=== PATIENT | male | born 1950 | race Asian ===

== ENCOUNTER 2016-12-24 12:26 | Inpatient (IN) | payer MEDICARE ==
[2016-12-24] VITALS (13 sets, daily range): BP systolic 88–119; BP diastolic 42–78
[~2016-12-24] VITALS: Ht 170.2 cm; Wt 69.7 kg
[2016-12-24] MEDS ORDERED: NOREPINEPHRINE 4 MG/D5%-WATER 250 ML IV ONE (12:44)
[2016-12-24] MEDS ORDERED: AMIODARONE HCL 150 MG in DEXTROSE 5%-WATER 97 ML IV ONE (12:45)
[2016-12-24] MEDS ORDERED: AMIODARONE HCL 360 MG in DEXTROSE 5%-WATER 242.8 ML IV ONE (12:45)
[2016-12-24] MEDS ORDERED: SUCCINYLCHOLINE CHLORIDE 20 MG/ML 10 ML VIAL ONE (12:47)
[2016-12-24] MEDS ORDERED: RAPID SEQUENCE KIT 1 EA KIT ONE (12:47)
[2016-12-24] MEDS ORDERED: ETOMIDATE 2 MG/ML 10 ML VIAL ONE (12:47)
[2016-12-24 12:54] LABS: BASOPHILS % (AUTO) 0.3 % (0.0-2.0); EOSINOPHILS % (AUTO) 1.7 % (1.0-6.0); HEMATOCRIT 50.5 % (41-53); LYMPHOCYTES # (AUTO) 4.8 K/uL (1.0-4.8); LYMPHOCYTES % (AUTO) 40.3 % (22.0-44.0); MEAN CORPUSCULAR HEMOGLOBIN 28.4 pg (26.0-34.0); MEAN CORPUSCULAR HGB CONC 31.7 G/dL (31.0-37.0); MEAN CORPUSCULAR VOLUME 89 fL (80-100); MONOCYTES # (AUTO) 0.1 K/uL (0.1-1.0); MONOCYTES % (AUTO) 0.8 % (2.0-9.0); NEUTROPHILS # (AUTO) 6.8 K/uL (1.8-7.7); NEUTROPHILS % (AUTO) 56.9 % (40.0-70.0); PLATELET COUNT (AUTO) 119 K/uL (150-450); RED BLOOD CELL COUNT(AUTO) 5.66 MIL/uL (4.50-5.90); RED CELL DISTRIBUTION WIDTH 16.1 % (11.5-14.5)
[2016-12-24] MEDS ORDERED: ETOMIDATE 2 MG/ML 10 ML VIAL IVP ONE (13:00)
[2016-12-24] MEDS ORDERED: SUCCINYLCHOLINE CHLORIDE 20 MG/ML 10 ML VIAL IVP ONE (13:00)
[2016-12-24 13:04] LABS: CALCIUM, TOTAL 7.6 mg/dL (8.8-10.5); CREATININE 1.68 mg/dL (0.60-1.30); POTASSIUM 3.1 mmol/L (3.5-5.1)
[2016-12-24 13:06] LABS: INR 1.1 (0.9-1.1)
[2016-12-24] MEDS ORDERED: PHENYLEPHRINE 200 MG/D5%-WATER 250 ML IV PRN (13:15)
[2016-12-24 13:29] LABS: ALBUMIN 3.5 g/dL (3.4-5.0); BILIRUBIN,TOTAL 0.5 mg/dL (0.1-1.0); CREATINE KINASE MB 16.3 ng/mL (0-5); TOTAL PROTEIN, SERUM 7.7 g/dL (6.4-8.2)
[2016-12-24 13:30] LABS: ABG BASE EXCESS -22.8 mmol/L (-2.0-3.0); ABG HCO3 8.6 mmol/L (22.0-26.0); ABG OXYHEMOGLOBIN 76.9 % (94.0-100.0); ABG PCO2 42 mmHg (35-45); ABG PH 6.958 (7.35-7.450)
[2016-12-24 13:31] LABS: ALLEN TEST, BLOOD GAS Positive
[2016-12-24] MEDS ORDERED: VERAPAMIL HCL 2.5 MG/ML 2 ML VIAL ONE (13:32)
[2016-12-24] MEDS ORDERED: SODIUM BICARBONATE 50 MEQ/50 ML VIAL ONE (13:33)
[2016-12-24] MEDS ORDERED: IOHEXOL 300 MG/ML 50 ML VIAL ONE (13:33)
[2016-12-24] MEDS ORDERED: IOHEXOL 300 MG/ML 150 ML VIAL ONE (13:33)
[2016-12-24] MEDS ORDERED: NITROGLYCERIN 50 MG/D5% WATER 0 ML ONE (13:33)
[2016-12-24] MEDS ORDERED: HEPARIN SODIUM 1000 UNITS/NS 1,000 ML ONE (13:33)
[2016-12-24] MEDS ORDERED: IOHEXOL 300 MG/ML 100 ML VIAL ONE (13:33)
[2016-12-24] MEDS ORDERED: LIDOCAINE HCL/PF 1% 30 ML VIAL ONE (13:33)
[2016-12-24] MEDS ORDERED: LORazepam 2 MG/ML VIAL IVP ONE (13:45)
[2016-12-24] MEDS ORDERED: ROCURONIUM BROMIDE 10 MG/ML 5 ML VIAL IVP ONE (13:45)
[2016-12-24] MEDS: NOREPINEPHRINE 4 MG/D5%-WATER 250 ML IV PRN ×2 (14:00→23:53)
[2016-12-24] MEDS ORDERED: HEPARIN SODIUM 2,000 UNITS in HEPARIN SODIUM 1000 UNITS/NS 1,000 ML IARTER ONE (14:33)
[2016-12-24] MEDS ORDERED: HEPARIN SODIUM 1000 UNITS/NS 500 ML ONE (14:33)
[2016-12-24] MEDS ORDERED: LIDOCAINE 1% 30 ML/SOD BICARB 8.4% 4 ML SQ ONE (14:45)
[2016-12-24] MEDS ORDERED: IOHEXOL 300 MG/ML 150 ML VIAL IARTER ONE (14:45)
[2016-12-24] MEDS ORDERED: FUROSEMIDE 40 MG/4 ML VIAL IVP ONE (15:15)
[2016-12-24] MEDS ORDERED: POTASSIUM CHLORIDE 20 MEQ ER TABLET PO PRN (16:00)
[2016-12-24] MEDS ORDERED: POTASSIUM CHL 10 MEQ/WATER 50 ML IV PRN (16:00)
[2016-12-24] MEDS ORDERED: SODIUM CHLORIDE 0.9% 500 ML IV ONE (16:06)
[2016-12-24] MEDS ORDERED: SODIUM CHLORIDE 0.9% 250 ML IV ONE (16:54)
[2016-12-24] MEDS ORDERED: AMIODARONE HCL 50 MG/ML 3 ML VIAL IVP ONE (17:15)
[2016-12-24] MEDS ORDERED: EPINEPHrine 1:10,000 [1 MG/10 ML] SYRINGE IVP ONE (17:15)
[2016-12-24 17:26] LABS: ABG A-A DIFF O2 325.7 mmHg (10-20.0); ABG BASE EXCESS -13.9 mmol/L (-2.0-3.0); ABG HCO3 13.8 mmol/L (22.0-26.0); ABG OXYHEMOGLOBIN 98.3 % (94.0-100.0); ABG PCO2 54 mmHg (35-45); TEMPERATURE, FAHRENHEIT, BG 96.5 FAHREN (96.0-98.6)
[2016-12-24 17:30] LABS: ABG PH 7.086 (7.35-7.450)
[2016-12-24 17:31] LABS: ALLEN TEST, BLOOD GAS Positive
[2016-12-24 18:05] LABS: CREATINE KINASE MB 62.9 ng/mL (0-5)
[2016-12-24] MEDS: POTASSIUM CHL 10 MEQ/WATER 50 ML IV PRN ×3 (18:16→19:03)
[2016-12-24] MEDS ORDERED: AMIODARONE HCL 540 MG in DEXTROSE 5%-WATER 239.2 ML IV ONE (18:45)
[2016-12-24 19:43] LABS: ABG A-A DIFF O2 270.4 mmHg (10-20.0); ABG BASE EXCESS -15.8 mmol/L (-2.0-3.0); ABG HCO3 14.7 mmol/L (22.0-26.0); ABG OXYHEMOGLOBIN 98.5 % (94.0-100.0); ABG PCO2 20 mmHg (35-45); ABG PH 7.329 (7.35-7.450); TEMPERATURE, FAHRENHEIT, BG 97.2 FAHREN (96.0-98.6)
[2016-12-24 19:47] LABS: INSIPIRATORY PRESSURE, BG 28 cm H2O
[2016-12-24] MEDS: FUROSEMIDE 40 MG/4 ML VIAL IVP SCH (20:42)
[2016-12-24 23:20] LABS: ALBUMIN 3.5 g/dL (3.4-5.0); BILIRUBIN,TOTAL 1.2 mg/dL (0.1-1.0); CALCIUM, TOTAL 7.5 mg/dL (8.8-10.5); CREATININE 2.07 mg/dL (0.60-1.30); MAGNESIUM 2.4 mg/dL (1.80-2.40); PHOSPHORUS 3.4 mg/dL (2.5-4.9); POTASSIUM 4.9 mmol/L (3.5-5.1); TOTAL PROTEIN, SERUM 7.5 g/dL (6.4-8.2)
[2016-12-25] VITALS (7 sets, daily range): BP systolic 60–152; BP diastolic 33–93
[2016-12-25] MEDS: NOREPINEPHRINE 4 MG/D5%-WATER 250 ML IV PRN ×3 (01:06→08:34)
[2016-12-25] MEDS: LORazepam 2 MG/ML VIAL IVP PRN ×2 (03:36→05:39)
[2016-12-25] MEDS: MORPHINE SULFATE 2 MG/ML SYRINGE IVP PRN (04:43)
[2016-12-25] MEDS: VASOPRESSIN 100 UNITS in DEXTROSE 5%-WATER 245 ML IV PRN (05:09)
[2016-12-25 05:10] LABS: TEMPERATURE, FAHRENHEIT, BG 94.9 FAHREN (96.0-98.6)
[2016-12-25 05:14] LABS: ABG A-A DIFF O2 194.8 mmHg (10-20.0); ABG HCO3 14.6 mmol/L (22.0-26.0); ABG OXYHEMOGLOBIN 98.4 % (94.0-100.0); ABG PCO2 25 mmHg (35-45); ABG PH 7.295 (7.35-7.450)
[2016-12-25 05:15] LABS: ALLEN TEST, BLOOD GAS POS
[2016-12-25 05:58] LABS: HEMOGLOBIN 15.8 g/dL (13.5-17.5); MEAN CORPUSCULAR HEMOGLOBIN 28.3 pg (26.0-34.0); MEAN CORPUSCULAR HGB CONC 32.2 G/dL (31.0-37.0); MEAN CORPUSCULAR VOLUME 88 fL (80-100); PLATELET COUNT (AUTO) 169 K/uL (150-450); RED BLOOD CELL COUNT(AUTO) 5.57 MIL/uL (4.50-5.90); RED CELL DISTRIBUTION WIDTH 15.4 % (11.5-14.5); WHITE BLOOD COUNT (AUTO) 21.7 K/uL (4.5-11.0)
[2016-12-25 06:04] LABS: INR 1.2 (0.9-1.1); PROTHROMBIN TIME 12.7 SEC (9.4-11.6)
[2016-12-25] MEDS: PROPOFOL 1000 MG/ISO-OSM 100 ML IV PRN ×3 (06:40→23:34)
[2016-12-25 06:49] LABS: BILIRUBIN,TOTAL 0.8 mg/dL (0.1-1.0); CALCIUM, TOTAL 6.9 mg/dL (8.8-10.5); CREATINE KINASE MB 159.3 ng/mL (0-5); CREATININE 2.4 mg/dL (0.60-1.30); PHOSPHORUS 3.2 mg/dL (2.5-4.9); POTASSIUM 4.3 mmol/L (3.5-5.1); THYROID STIMULATING HORMONE 3.64 uIU/mL (0.36-3.74)
[2016-12-25] MEDS ORDERED: DOPamine HCL 400 MG/D5%-WATER 250 ML IV ONE (08:02)
[2016-12-25] MEDS: DOPamine HCL 400 MG/D5%-WATER 250 ML IV PRN (08:37)
[2016-12-25 08:47] LABS: ABG A-A DIFF O2 412.8 mmHg (10-20.0); ABG BASE EXCESS -16.1 mmol/L (-2.0-3.0); ABG HCO3 13.6 mmol/L (22.0-26.0); ABG PCO2 28 mmHg (35-45); ABG PH 7.235 (7.35-7.450); TEMPERATURE, FAHRENHEIT, BG 96.6 FAHREN (96.0-98.6)
[2016-12-25 08:51] LABS: ALLEN TEST, BLOOD GAS Positive
[2016-12-25 08:52] LABS: INSIPIRATORY PRESSURE, BG 28 cm H2O
[2016-12-25 08:53] LABS: BAND NEUTROPHILS % (MANUAL) 33 % (1-5); LYMPHOCYTES % (MANUAL) 12 % (22-44); RBC MORPHOLOGY COMMENT NORMAL RBC MORPH; TOTAL CELLS COUNTED 100
[2016-12-25] MEDS ORDERED: SODIUM BICARBONATE [ADULT] 8.4% 50 MEQ/50 ML SYRINGE IVP ONE (09:00)
[2016-12-25] MEDS: FUROSEMIDE 40 MG/4 ML VIAL IVP SCH ×2 (09:00→21:00)
[2016-12-25] MEDS ORDERED: DIGOXIN 250 MCG/ML 2 ML AMP IVP ONE (09:45)
[2016-12-25] MEDS ORDERED: HEPARIN SODIUM,PORCINE 1,000 UNITS/ML VIAL IVP ONE (10:00)
[2016-12-25] MEDS ORDERED: HEPARIN SODIUM,PORCINE 5,000 UNITS/ML VIAL SQ ONE (10:00)
[2016-12-25] MEDS ORDERED: DOPamine HCL 800 MG/D5%-WATER 250 ML IV PRN (10:00)
[2016-12-25] MEDS: SODIUM BICARBONATE 150 MEQ in DEXTROSE 5%-WATER 1,000 ML IV SCH (10:06)
[2016-12-25] MEDS ORDERED: ALBUMIN HUMAN 25%-12.5GM/50ML 100 ML ONE (10:16)
[2016-12-25] MEDS ORDERED: ALBUMIN HUMAN 25%-25GM/100ML 100 ML IV ONE (10:30)
[2016-12-25 10:36] LABS: ABG A-A DIFF O2 630.1 mmHg (10-20.0); ABG BASE EXCESS -6.3 mmol/L (-2.0-3.0); ABG HCO3 20.2 mmol/L (22.0-26.0); ABG OXYHEMOGLOBIN 90.8 % (94.0-100.0); ABG PCO2 30 mmHg (35-45); ABG PH 7.405 (7.35-7.450); TEMPERATURE, FAHRENHEIT, BG 97.4 FAHREN (96.0-98.6)
[2016-12-25 10:38] LABS: HEMATOCRIT 43.5 % (41-53); HEMOGLOBIN 14.2 g/dL (13.5-17.5); MEAN CORPUSCULAR HEMOGLOBIN 28.1 pg (26.0-34.0); MEAN CORPUSCULAR HGB CONC 32.6 G/dL (31.0-37.0); MEAN CORPUSCULAR VOLUME 86 fL (80-100); PLATELET COUNT (AUTO) 131 K/uL (150-450); RED BLOOD CELL COUNT(AUTO) 5.05 MIL/uL (4.50-5.90); RED CELL DISTRIBUTION WIDTH 15.1 % (11.5-14.5); WHITE BLOOD COUNT (AUTO) 20.1 K/uL (4.5-11.0)
[2016-12-25 10:45] LABS: INSIPIRATORY PRESSURE, BG 26 cm H2O
[2016-12-25 11:04] LABS: CALCIUM, TOTAL 6.3 mg/dL (8.8-10.5); CREATININE 2.76 mg/dL (0.60-1.30)
[2016-12-25 11:09] LABS: MAGNESIUM 1.5 mg/dL (1.80-2.40)
[2016-12-25 11:21] LABS: BAND NEUTROPHILS % (MANUAL) 26 % (1-5); LYMPHOCYTES % (MANUAL) 20 % (22-44); TOTAL CELLS COUNTED 100
[2016-12-25 11:22] LABS: RBC MORPHOLOGY COMMENT NORMAL RBC MORPH
[2016-12-25] MEDS ORDERED: VANCOMYCIN HCL 1 GM/D5% WATER 200 ML IV PRN (11:45)
[2016-12-25] MEDS: PHENYLEPHRINE HCL 800 MG in DEXTROSE 5%-WATER 170 ML IV PRN (11:52)
[2016-12-25] MEDS: NOREPINEPHRINE BITARTRATE 16 MG in DEXTROSE 5%-WATER 234 ML IV PRN (11:53)
[2016-12-25] MEDS ORDERED: SODIUM CHLORIDE 0.9% 2,000 ML IV ONE (12:31)
[2016-12-25] MEDS: PIPERACILLIN/TAZO 3.375 GM/D5W 50 ML IV SCH ×3 (12:32→21:20)
[2016-12-25] MEDS ORDERED: AMIODARONE HCL 750 MG in DEXTROSE 5%-WATER 485 ML IV SCH (12:45)
[2016-12-25] MEDS ORDERED: VANCOMYCIN HCL 1 GM/D5% WATER 200 ML IV ONE (13:00)
[2016-12-25 21:22] LABS: CALCIUM, TOTAL 6.8 mg/dL (8.8-10.5); CREATININE 1.2 mg/dL (0.60-1.30); POTASSIUM 5.4 mmol/L (3.5-5.1)
[2016-12-26] VITALS (16 sets, daily range): BP systolic 86–159; BP diastolic 34–90
[2016-12-26] MEDS: NOREPINEPHRINE BITARTRATE 16 MG in DEXTROSE 5%-WATER 234 ML IV PRN (00:37)
[2016-12-26] MEDS: POTASSIUM CHLORIDE 20 MEQ in NXSTAGE RFP-402 K0/CA3 5,000 ML IRRIG PRN ×2 (01:38→06:04)
[2016-12-26] MEDS: SODIUM BICARBONATE 150 MEQ in DEXTROSE 5%-WATER 1,000 ML IV SCH ×2 (03:45→23:46)
[2016-12-26] MEDS: PIPERACILLIN/TAZO 3.375 GM/D5W 50 ML IV SCH ×4 (03:45→20:49)
[2016-12-26] MEDS: VASOPRESSIN 100 UNITS in DEXTROSE 5%-WATER 245 ML IV PRN (05:23)
[2016-12-26 05:31] LABS: CALCIUM, TOTAL 6.5 mg/dL (8.8-10.5); CREATININE 2.04 mg/dL (0.60-1.30)
[2016-12-26] MEDS: PROPOFOL 1000 MG/ISO-OSM 100 ML IV PRN ×2 (06:52→16:39)
[2016-12-26] MEDS: POTASSIUM CHLORIDE 10 MEQ in NXSTAGE RFP-402 K0/CA3 5,000 ML IRRIG PRN ×3 (07:34→16:41)
[2016-12-26 08:09] LABS: BASOPHILS % (AUTO) 0.1 % (0.0-2.0); EOSINOPHILS % (AUTO) 0.2 % (1.0-6.0); HEMATOCRIT 37.2 % (41-53); HEMOGLOBIN 12.2 g/dL (13.5-17.5); LYMPHOCYTES # (AUTO) 0.7 K/uL (1.0-4.8); MEAN CORPUSCULAR HEMOGLOBIN 28.2 pg (26.0-34.0); MEAN CORPUSCULAR HGB CONC 32.9 G/dL (31.0-37.0); MEAN CORPUSCULAR VOLUME 86 fL (80-100); MONOCYTES # (AUTO) 0.3 K/uL (0.1-1.0); MONOCYTES % (AUTO) 1.6 % (2.0-9.0); NEUTROPHILS # (AUTO) 16.3 K/uL (1.8-7.7); RED BLOOD CELL COUNT(AUTO) 4.33 MIL/uL (4.50-5.90); RED CELL DISTRIBUTION WIDTH 15.3 % (11.5-14.5); WHITE BLOOD COUNT (AUTO) 17.4 K/uL (4.5-11.0)
[2016-12-26 08:11] LABS: NEUTROPHILS % (AUTO) 94.1 % (40.0-70.0); PLATELET COUNT (AUTO) 12 K/uL (150-450)
[2016-12-26 08:35] LABS: RBC MORPHOLOGY COMMENT NORMAL RBC MORPH
[2016-12-26] MEDS: FUROSEMIDE 40 MG/4 ML VIAL IVP SCH ×2 (09:00→20:50)
[2016-12-26] MEDS ORDERED: VANCOMYCIN HCL 1 GM/D5% WATER 200 ML IV ONE (09:00)
[2016-12-26 09:34] LABS: ABG A-A DIFF O2 410.8 mmHg (10-20.0); ABG HCO3 19.8 mmol/L (22.0-26.0); ABG OXYHEMOGLOBIN 98.7 % (94.0-100.0); ABG PCO2 30 mmHg (35-45); ABG PH 7.398 (7.35-7.450); TEMPERATURE, FAHRENHEIT, BG 98.6 FAHREN (96.0-98.6)
[2016-12-26] MEDS ORDERED: SODIUM CHLORIDE 0.9% 250 ML IV ONE ×2 (10:10→16:12)
[2016-12-26 10:20] LABS: FIBRINOGEN 259 mg/dL (200-400); INR 2.3 (0.9-1.1); PARTIAL THROMBOPLASTIN TIME 44 SEC (25-35); PROTHROMBIN TIME 24.6 SEC (9.4-11.6)
[2016-12-26 11:12] LABS: INSIPIRATORY PRESSURE, BG 26 cm H2O
[2016-12-26] MEDS: PANTOPRAZOLE SODIUM 40 MG/VIAL IVP SCH ×2 (14:42→20:49)
[2016-12-26 15:43] LABS: HEMATOCRIT 32.8 % (41-53); HEMOGLOBIN 10.9 g/dL (13.5-17.5); MEAN CORPUSCULAR HEMOGLOBIN 28.5 pg (26.0-34.0); MEAN CORPUSCULAR HGB CONC 33.1 G/dL (31.0-37.0); MEAN CORPUSCULAR VOLUME 86 fL (80-100); RED BLOOD CELL COUNT(AUTO) 3.81 MIL/uL (4.50-5.90); RED CELL DISTRIBUTION WIDTH 15.4 % (11.5-14.5); WHITE BLOOD COUNT (AUTO) 15.2 K/uL (4.5-11.0)
[2016-12-26 16:10] LABS: PLATELET COUNT (AUTO) 77 K/uL (150-450)
[2016-12-26] MEDS ORDERED: SODIUM CHLORIDE 0.9% 500 ML IV ONE (16:12)
[2016-12-26 16:13] LABS: BAND NEUTROPHILS % (MANUAL) 14 % (1-5); LYMPHOCYTES % (MANUAL) 2 % (22-44); RBC MORPHOLOGY COMMENT NORMAL RBC MORPH; TOTAL CELLS COUNTED 100
[2016-12-26 21:30] LABS: CALCIUM, TOTAL 7.1 mg/dL (8.8-10.5); CREATININE 2.58 mg/dL (0.60-1.30); POTASSIUM 4.8 mmol/L (3.5-5.1)
[2016-12-27] VITALS (9 sets, daily range): BP systolic 75–155; BP diastolic 37–72
[2016-12-27] MEDS: POTASSIUM CHLORIDE 10 MEQ in NXSTAGE RFP-402 K0/CA3 5,000 ML IRRIG PRN ×2 (02:11→02:14)
[2016-12-27] MEDS: PROPOFOL 1000 MG/ISO-OSM 100 ML IV PRN ×3 (02:25→21:39)
[2016-12-27] MEDS: PIPERACILLIN/TAZO 3.375 GM/D5W 50 ML IV SCH ×4 (02:25→21:06)
[2016-12-27] MEDS ORDERED: SODIUM CHLORIDE 0.9% 250 ML IV ONE ×3 (02:27→14:42)
[2016-12-27 06:16] LABS: CALCIUM, TOTAL 7.2 mg/dL (8.8-10.5); CREATININE 2.8 mg/dL (0.60-1.30); POTASSIUM 4.4 mmol/L (3.5-5.1)
[2016-12-27 06:36] LABS: EOSINOPHILS # (AUTO) 0.07 K/uL (0.00-0.70); EOSINOPHILS % (AUTO) 0.49 % (1.0-6.0); HEMATOCRIT 30.5 % (41-53); HEMOGLOBIN 10.6 g/dL (13.5-17.5); LYMPHOCYTES # (AUTO) 0.5 K/uL (1.0-4.8); LYMPHOCYTES % (AUTO) 3.7 % (22.0-44.0); MEAN CORPUSCULAR HEMOGLOBIN 29.5 pg (26.0-34.0); MEAN CORPUSCULAR HGB CONC 34.7 G/dL (31.0-37.0); MEAN CORPUSCULAR VOLUME 85 fL (80-100); MONOCYTES # (AUTO) 0.2 K/uL (0.1-1.0); MONOCYTES % (AUTO) 1.3 % (2.0-9.0); NEUTROPHILS # (AUTO) 13.8 K/uL (1.8-7.7); PLATELET COUNT (AUTO) 53 K/uL (150-450); RED BLOOD CELL COUNT(AUTO) 3.58 MIL/uL (4.50-5.90); RED CELL DISTRIBUTION WIDTH 15.4 % (11.5-14.5); WHITE BLOOD COUNT (AUTO) 14.6 K/uL (4.5-11.0)
[2016-12-27 06:40] LABS: NEUTROPHILS % (AUTO) 94.6 % (40.0-70.0)
[2016-12-27] MEDS ORDERED: VANCOMYCIN HCL 1 GM/D5% WATER 200 ML IV ONE (08:00)
[2016-12-27] MEDS: FUROSEMIDE 40 MG/4 ML VIAL IVP SCH (08:50)
[2016-12-27 08:51] LABS: ABG A-A DIFF O2 322.3 mmHg (10-20.0); ABG BASE EXCESS 1.6 mmol/L (-2.0-3.0); ABG HCO3 26.4 mmol/L (22.0-26.0); ABG OXYHEMOGLOBIN 98.8 % (94.0-100.0); ABG PCO2 30 mmHg (35-45); ABG PH 7.526 (7.35-7.450); TEMPERATURE, FAHRENHEIT, BG 98.6 FAHREN (96.0-98.6)
[2016-12-27 08:52] LABS: INSIPIRATORY PRESSURE, BG 26 cm H2O
[2016-12-27] MEDS: PANTOPRAZOLE SODIUM 40 MG/VIAL IVP SCH ×2 (08:56→21:06)
[2016-12-27] MEDS: POTASSIUM CHLORIDE 15 MEQ in NXSTAGE RFP-402 K0/CA3 5,000 ML IRRIG PRN ×4 (11:00→23:51)
[2016-12-27] MEDS ORDERED: SODIUM CHLORIDE 0.9% 500 ML IV ONE (13:57)
[2016-12-27] MEDS ORDERED: PHENYLEPHRINE 200 MG/D5%-WATER 250 ML IV ONE (16:09)
[2016-12-27] MEDS: PHENYLEPHRINE HCL 800 MG in DEXTROSE 5%-WATER 170 ML IV PRN (16:22)
[2016-12-27] MEDS: MORPHINE SULFATE 2 MG/ML SYRINGE IVP PRN (17:19)
[2016-12-27] MEDS: NOREPINEPHRINE BITARTRATE 16 MG in DEXTROSE 5%-WATER 234 ML IV PRN (19:00)
[2016-12-27] MEDS ORDERED: DIGOXIN 250 MCG/ML 2 ML AMP IVP ONE (21:00)
[2016-12-28] VITALS (7 sets, daily range): BP systolic 98–123; BP diastolic 41–69
[2016-12-28] MEDS: PIPERACILLIN/TAZO 3.375 GM/D5W 50 ML IV SCH ×4 (03:29→20:31)
[2016-12-28] MEDS: PROPOFOL 1000 MG/ISO-OSM 100 ML IV PRN ×2 (03:39→16:40)
[2016-12-28 05:56] LABS: EOSINOPHILS # (AUTO) 0.16 K/uL (0.00-0.70); HEMATOCRIT 30.4 % (41-53); HEMOGLOBIN 10.7 g/dL (13.5-17.5); LYMPHOCYTES # (AUTO) 0.8 K/uL (1.0-4.8); LYMPHOCYTES % (AUTO) 6.2 % (22.0-44.0); MEAN CORPUSCULAR HGB CONC 35.3 G/dL (31.0-37.0); MEAN CORPUSCULAR VOLUME 85 fL (80-100); MONOCYTES # (AUTO) 0.1 K/uL (0.1-1.0); MONOCYTES % (AUTO) 0.4 % (2.0-9.0); NEUTROPHILS # (AUTO) 11.6 K/uL (1.8-7.7); PLATELET COUNT (AUTO) 28 K/uL (150-450); RED BLOOD CELL COUNT(AUTO) 3.58 MIL/uL (4.50-5.90); RED CELL DISTRIBUTION WIDTH 15.4 % (11.5-14.5); WHITE BLOOD COUNT (AUTO) 12.6 K/uL (4.5-11.0)
[2016-12-28 06:39] LABS: ALBUMIN 2.4 g/dL (3.4-5.0); BILIRUBIN,TOTAL 4.5 mg/dL (0.1-1.0); CALCIUM, TOTAL 7.6 mg/dL (8.8-10.5); CREATININE 2.97 mg/dL (0.60-1.30); MAGNESIUM 1.8 mg/dL (1.80-2.40); PHOSPHORUS 3.5 mg/dL (2.5-4.9); POTASSIUM 4.4 mmol/L (3.5-5.1); TOTAL PROTEIN, SERUM 5.4 g/dL (6.4-8.2)
[2016-12-28 06:45] LABS: NEUTROPHILS % (AUTO) 92.1 % (40.0-70.0)
[2016-12-28 06:46] LABS: RBC MORPHOLOGY COMMENT NORMAL RBC MORPH
[2016-12-28] MEDS ORDERED: VANCOMYCIN HCL 1 GM/D5% WATER 200 ML IV ONE (08:00)
[2016-12-28 10:34] LABS: ABG A-A DIFF O2 225.3 mmHg (10-20.0); ABG BASE EXCESS -3.5 mmol/L (-2.0-3.0); ABG HCO3 22.7 mmol/L (22.0-26.0); ABG OXYHEMOGLOBIN 97.8 % (94.0-100.0); ABG PCO2 24 mmHg (35-45); TEMPERATURE, FAHRENHEIT, BG 97.6 FAHREN (96.0-98.6)
[2016-12-28 12:02] LABS: INSIPIRATORY PRESSURE, BG 26 cm H2O
[2016-12-28] MEDS ORDERED: DIGOXIN 250 MCG/ML 2 ML AMP IVP ONE (13:45)
[2016-12-28] MEDS: PANTOPRAZOLE SODIUM 40 MG/VIAL IVP SCH ×2 (13:54→20:32)
[2016-12-28 16:05] LABS: ABG A-A DIFF O2 227.1 mmHg (10-20.0); ABG HCO3 22.8 mmol/L (22.0-26.0); ABG OXYHEMOGLOBIN 96.5 % (94.0-100.0); ABG PCO2 28 mmHg (35-45); ABG PH 7.478 (7.35-7.450); TEMPERATURE, FAHRENHEIT, BG 98.6 FAHREN (96.0-98.6)
[2016-12-28 16:08] LABS: INSIPIRATORY PRESSURE, BG 18 cm H2O
[2016-12-28 18:02] LABS: CALCIUM, TOTAL 7.8 mg/dL (8.8-10.5); CREATININE 3.11 mg/dL (0.60-1.30); POTASSIUM 4.2 mmol/L (3.5-5.1)
[2016-12-28] MEDS ORDERED: SODIUM CHLORIDE 0.9% 250 ML IV ONE (20:26)
[2016-12-29] VITALS (7 sets, daily range): BP systolic 110–127; BP diastolic 48–61
[2016-12-29] MEDS: POTASSIUM CHLORIDE 15 MEQ in NXSTAGE RFP-402 K0/CA3 5,000 ML IRRIG PRN ×5 (00:01→20:49)
[2016-12-29] MEDS ORDERED: HEPARIN SODIUM,PORCINE 1,000 UNITS/ML VIAL ONE (02:19)
[2016-12-29] MEDS ORDERED: SODIUM CHLORIDE 0.9% 500 ML IV ONE (02:46)
[2016-12-29] MEDS ORDERED: SODIUM CHLORIDE 0.9% 1,000 ML IV ONE (03:10)
[2016-12-29] MEDS: PIPERACILLIN/TAZO 3.375 GM/D5W 50 ML IV SCH ×4 (03:28→20:48)
[2016-12-29] MEDS: NOREPINEPHRINE BITARTRATE 16 MG in DEXTROSE 5%-WATER 234 ML IV PRN (03:29)
[2016-12-29] MEDS: PHENYLEPHRINE HCL 800 MG in DEXTROSE 5%-WATER 170 ML IV PRN (03:30)
[2016-12-29 06:00] LABS: CALCIUM, TOTAL 7.8 mg/dL (8.8-10.5); CREATININE 3.63 mg/dL (0.60-1.30); POTASSIUM 4.5 mmol/L (3.5-5.1)
[2016-12-29 06:16] LABS: DIGOXIN 2.76 ng/mL (0.90-2.00)
[2016-12-29] MEDS: PROPOFOL 1000 MG/ISO-OSM 100 ML IV PRN ×3 (08:46→19:16)
[2016-12-29 11:53] LABS: ABG A-A DIFF O2 231.2 mmHg (10-20.0); ABG BASE EXCESS -6.1 mmol/L (-2.0-3.0); ABG HCO3 20.3 mmol/L (22.0-26.0); ABG OXYHEMOGLOBIN 95.4 % (94.0-100.0); ABG PCO2 29 mmHg (35-45); ABG PH 7.422 (7.35-7.450); TEMPERATURE, FAHRENHEIT, BG 98.4 FAHREN (96.0-98.6)
[2016-12-29 11:56] LABS: INSIPIRATORY PRESSURE, BG 18 cm H2O
[2016-12-29] MEDS: PANTOPRAZOLE SODIUM 40 MG/VIAL IVP SCH ×2 (12:16→20:48)
[2016-12-29 18:19] LABS: CALCIUM, TOTAL 7.8 mg/dL (8.8-10.5); CREATININE 3.77 mg/dL (0.60-1.30); POTASSIUM 4.6 mmol/L (3.5-5.1)
[2016-12-29] MEDS ORDERED: NOREPINEPHRINE 4 MG/D5%-WATER 250 ML IV PRN (22:13)
[2016-12-29] MEDS ORDERED: PHENYLEPHRINE 200 MG/D5%-WATER 250 ML IV PRN (22:13)
[2016-12-30] VITALS: BP 123/60
[2016-12-30 02:00] VITALS: BP 122/49
[2016-12-30] MEDS ORDERED: HEPARIN SODIUM,PORCINE 1,000 UNITS/ML VIAL ONE (02:19)
[2016-12-30] MEDS ORDERED: HEPARIN SODIUM,PORCINE 1,000 UNITS/ML VIAL IVP PRN ×2 (02:30)
[2016-12-30] MEDS: PROPOFOL 1000 MG/ISO-OSM 100 ML IV PRN (02:35)
[2016-12-30] MEDS: PIPERACILLIN/TAZO 3.375 GM/D5W 50 ML IV SCH (02:35)
[2016-12-30 02:54] VITALS: BP 84/40
[2016-12-30] MEDS: MORPHINE SULFATE 2 MG/ML SYRINGE IVP PRN (02:54)
[2016-12-30 03:10] VITALS: BP 89/37
[2016-12-30] MEDS ORDERED: ATROPINE SULFATE 0.1 MG/ML 10 ML SYRINGE IVP ONE ×3 (03:51→04:30)
[2016-12-30 04:00] VITALS: BP 74/14
[2016-12-30 04:10] VITALS: BP 54/38
[2016-12-30] MEDS: DOPamine HCL 400 MG/D5%-WATER 250 ML IV PRN (04:10)
[2016-12-30] MEDS ORDERED: SODIUM CHLORIDE 0.9% 1,000 ML IV ONE (04:51)
[2016-12-30] MEDS ORDERED: EPINEPHrine 1:10,000 [1 MG/10 ML] SYRINGE IVP ONE (05:42)
[2016-12-30] MEDS ORDERED: SODIUM BICARBONATE [ADULT] 8.4% 50 MEQ/50 ML SYRINGE IVP ONE (05:42)
[2016-12-30 07:09] LABS: CALCIUM, TOTAL 7.9 mg/dL (8.8-10.5); CREATININE 4.69 mg/dL (0.60-1.30)
[2016-12-30 07:53] LABS: POTASSIUM 6.6 mmol/L (3.5-5.1)
== END 2016-12-30 05:43 | disposition expired | DRG 207 ==
LOC: EMS 12:33 → ICU 14:31
PROVIDERS: ADMIT Family Medicine; ATTEND Family Medicine
PROC: 5A12012 Performance of Cardiac Output, Single, Manual (ICD-10-PCS; principal; 2016-12-24)
PROC: 0BH17EZ Insertion of Endotracheal Airway into Trachea, Via Natural or Artificial Opening (ICD-10-PCS; 2016-12-24)
PROC: 4A023N8 Measurement of Cardiac Sampling and Pressure, Bilateral, Percutaneous Approach (ICD-10-PCS; 2016-12-24)
PROC: B2111ZZ Fluoroscopy of Multiple Coronary Arteries using Low Osmolar Contrast (ICD-10-PCS; 2016-12-24)
PROC: B2151ZZ Fluoroscopy of Left Heart using Low Osmolar Contrast (ICD-10-PCS; 2016-12-24)
PROC: 5A1955Z Respiratory Ventilation, Greater than 96 Consecutive Hours (ICD-10-PCS; 2016-12-24)
PROC: 5A1D60Z (ICD-10-PCS; 2016-12-25)
DX: J96.01 Acute respiratory failure with hypoxia (principal); I21.09 ST elevation (STEMI) myocardial infarction involving other coronary artery of anterior wall; K72.00 Acute and subacute hepatic failure without coma; R65.11 Systemic inflammatory response syndrome (SIRS) of non-infectious origin with acute organ dysfunction; N17.0 Acute kidney failure with tubular necrosis; R40.20 Unspecified coma; I47.2 Ventricular tachycardia; G93.1 Anoxic brain damage, not elsewhere classified; A04.7 Enterocolitis due to Clostridium difficile; E87.4 Mixed disorder of acid-base balance; I46.9 Cardiac arrest, cause unspecified; R73.9 Hyperglycemia, unspecified; I45.10 Unspecified right bundle-branch block; I44.0 Atrioventricular block, first degree; R57.0 Cardiogenic shock; D69.6 Thrombocytopenia, unspecified; E11.65 Type 2 diabetes mellitus with hyperglycemia; I49.01 Ventricular fibrillation
CPT/HCPCS: 51702; 82271; 82805; 83735; 84100; 84443; 85362; 85379; 85384; 86704; 86706; 86850; 86900; 86901; 87040; 87070; 87081; 87205; 87324; 87340; 87449; 92950; 93005; 93306; 93460; 93970; 94002; 94003; 96365; 96366; 96374; 96375; 99291; C9113; J0171; J0282; J0330; J0461; J1160; J1265; J1644; J1940; J2060; J2270; J2370; J2543; J2704; J3370; J3480; J3490; J7030; J7040; J7050; J7060; P9035; P9046; P9047; Q9967